=== PATIENT | male | born 1970 | race Caucasian/White ===

== ENCOUNTER 2018-10-09 10:34 | Inpatient (IN) ==
[2018-10-09] MEDS ORDERED: ASPIRIN PO ONE (11:08)
[2018-10-09 11:26] LABS: BASO# 0.02 X1000 (0.0-0.2); BASO% 0.2 % (0.0-0.8); EOS# 0.22 X1000 (0.0-0.7); EOS% 2.6 % (0.0-10.0); HEMATOCRIT 40.2 % (42.0-52.0); HEMOGLOBIN 14.6 g/dL (14.0-18.0); IMM GRAN# 0.03 X1000 (0.0-0.04); IMM GRAN% 0.4 % (0.0-0.5); LYMPH% 27.2 % (20.5-51.1); MCH 30.9 PG (27-31); MCHC 36.3 g/dL (33-37); MCV 85.2 FL (81-99); MONO# 0.59 X1000 (0.11-0.59); MPV 10.9 FL (7.4-10.4); NEUT# 5.31 X1000 (1.4-6.5); NEUT% 62.6 % (42.2-75.2); PLT 247 X1000 (130-400); RBC 4.72 XMIL (4.7-6.1); RDW 12.8 % (11.5-14.5); WBC 8.47 X1000 (4.8-10.8)
[2018-10-09 11:43] LABS: INR 0.91
[2018-10-09 11:44] LABS: PTT 29.4 Seconds (22.3-41.8)
[2018-10-09 11:46] LABS: D-DIMER 0.36 ug/mLFEU (0.0-0.52)
[2018-10-09 11:49] LABS: AGAP 10; ALB/GLOB RATIO 1.9; ALBUMIN 4.1 g/dL (3.5-5.0); ALKALINE PHOSPHATASE 110 U/L (32-122); BUN 15 mg/dL (8-22); CALCIUM 8.8 mg/dL (8.8-10.2); CHLORIDE 103 mmol/L (98-107); CK PROFILE 187 U/L (24-204); COSMO 281; ESTIMATED GFR > 60; GLUCOSE 143 mg/dL (70-104); GOT 17 U/L (10-34); GPT 21 U/L (10-44); POTASSIUM 3.5 mmol/L (3.5-5.1); SODIUM 139 mmol/L (136-145); TCO2 26 mmol/L (25-35); TOTAL BILIRUBIN 0.27 mg/dL (0.20-1.00); TOTAL PROTEIN 6.3 g/dL (6.3-8.3)
--- NOTE | 2018-10-09 11:58 | Diag Imaging Result Doc PS360 ---
CHEST-2 VIEWS - 10/09/2018 INDICATION: chest pain. COMPARISON: CT from 01/26/2017 FINDINGS: Stable surgical changes to the lateral right seventh rib with some resulting scarring of the lateral costophrenic angle. Stable right-sided fusion plate at T8-T9. The lungs are clear. Heart size is normal. No pneumothorax or pleural effusion. IMPRESSION: No change from prior. Electronically signed by Mookie Goddard 10/09/2018 11:55 AM
--- NOTE | 2018-10-09 13:44 | EKG Report ---
Test Performed on : 10/09/2018 11:00:44 AM Test Reason : CHEST PAIN/ SOB Blood Pressure : / mmHG Vent. Rate : 079 BPM Atrial Rate : 079 BPM P-R Int : 154 ms QRS Dur : 088 ms QT Int : 392 ms P-R-T Axes : 049 050 037 degrees QTc Int : 449 ms Normal sinus rhythm. Normal ECG When compared with ECG of 27-JAN-2017 00:59, No significant change was found Unconfirmed Result
[2018-10-09 15:04] LABS: HEMOGLOBIN A1C 5.1 % (4.8-6.0)
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
[2018-10-09] MEDS ORDERED: REQUIP PO SCH (21:00)
[2018-10-09] MEDS ORDERED: PROZAC PO SCH (21:00)
--- NOTE | 2018-10-09 22:27 | CONSULTATION ---
DATE OF CONSULTATION: 10/09/2018 IMPRESSION: 1. Noncardiac chest pain. 2. Hypertension in the past. 3. Chronic cigarette use. RECOMMENDATIONS: 1. Follow up cardiac enzymes. 2. Consider initiation of angiotensin receptor blocking agent for elevated blood pressure if this is consistent. 3. Check fasting lipid profile. 4. Exercise treadmill study reasonable to pursue as a screening test. This certainly could be pursued as an outpatient. HISTORY: This is a 48-year-old white male with past history of hypertension in the past and chronic cigarette use was admitted for further evaluation of chest pain. He reports a 1-week history of midsternal, sharp, stabbing chest pain that has been constant and has been without interruption. Discomfort is rated as a 5/10 in severity but increases with deep breath or cough. Discomfort is not positional nor is it aggravated by lifting. He contacted his primary physician, who referred him to the urgent care at his place of work, with which is [employer]. They advised him that he was not able to be seen in their urgent care clinic as he had not been working for [employer] long enough. They suggested he go to the emergency room. He has not had any cough. Not aware of any previous cardiac problems. He had high blood pressure in the past and was on treatment for this at one point. PAST MEDICAL HISTORY: 1. Hypertension. the past. 2. Chronic cigarette use. 3. History of nasal reconstruction surgery and previous back surgery. 4. He has no known drug allergies. MEDICATIONS PRIOR TO ADMISSION: Include meloxicam, ropinirole, and fluoxetine. SOCIAL HISTORY: He smokes about a half pack of cigarettes per day. He drinks infrequent alcoholic beverage. He is . He previously lived in the [place], [place] area but moved up to the [facility]. He has a family member who lives in [place]. He works at [employer]. FAMILY HISTORY: Negative for premature coronary disease. REVIEW OF SYSTEMS: Pulmonary: Negative beyond history of present illness. Gastrointestinal: Negative beyond history of present illness. Constitutional: Negative beyond history of present illness. Remainder of review of systems negative beyond history of present illness with 14 total systems reviewed. PHYSICAL EXAMINATION: General: This is an overweight white male in no distress on room air. Vital signs: Blood pressure 148/90, heart rate 60, oxygen saturation 98%. HEENT: Extraocular movements intact. Mucous membranes moist. Neck: Supple without jugular venous distention. There are no carotid bruits. Chest: Clear to auscultation. Cardiac: Reveals a regular rate and rhythm without appreciable murmur, rub, or gallop. Abdomen: Soft, bowel sounds normal. Extremities: Without edema. Neurologic: Reveals him to be alert and fully oriented. Speech is fluent. Moves all 4 extremities equally well. Skin: Warm and dry. Psychiatric: Reveals mood to be appropriate. EKG: A 12-lead EKG demonstrates normal sinus rhythm and it is within normal limits. LABORATORY DATA: Includes a white blood cell count 8.47, hematocrit 40.2, hemoglobin 14.6, platelet count 247,000. D-dimer 0.36. Sodium 139, potassium 3.5, chloride 103, carbon dioxide 26, BUN 15, creatinine 1.0. Initial troponin less than 0.01. Followup troponin's less 0.01 and less than 0.01. CPK 170, pro B natriuretic peptide level 139. IMAGING: Chest x-ray reviewed and demonstrates no acute infiltrates. Cardiac silhouette is normal in size. cc: Ishan Richards MD
[2018-10-10] MEDS ORDERED: HUMALOG SUBQ SCH (07:00)
[2018-10-10] MEDS ORDERED: PRILOSEC PO SCH (07:00)
[2018-10-10 07:04] LABS: HEMATOCRIT 42.8 % (42.0-52.0); MCH 30.2 PG (27-31); MCV 86.3 FL (81-99); MPV 10.7 FL (7.4-10.4); RBC 4.96 XMIL (4.7-6.1); WBC 8.62 X1000 (4.8-10.8)
--- NOTE | 2018-10-10 07:17 | EKG Report ---
Test Performed on : 10/09/2018 8:34:44 PM Test Reason : CP Blood Pressure : / mmHG Vent. Rate : 063 BPM Atrial Rate : 063 BPM P-R Int : 162 ms QRS Dur : 084 ms QT Int : 414 ms P-R-T Axes : 044 047 038 degrees QTc Int : 423 ms Normal sinus rhythm. Normal ECG When compared with ECG of 09-OCT-2018 11:00, (Unconfirmed) No significant change was found Confirmed by Kane JONES, Joe Amaya ([id number]) on 10/12/2018 4:38:08 PM
[2018-10-10 07:25] LABS: AGAP 11; BUN 10 mg/dL (8-22); CALCIUM 8.6 mg/dL (8.8-10.2); CHLORIDE 103 mmol/L (98-107); COSMO 278; ESTIMATED GFR > 60; GLUCOSE 91 mg/dL (70-104); POTASSIUM 3.7 mmol/L (3.5-5.1); SODIUM 140 mmol/L (136-145); TCO2 26 mmol/L (25-35)
[2018-10-10 07:37] LABS: CHOLESTEROL 191 mg/dL (0-200); HDL 34 mg/dL (35-55); TRIGLYCERIDES 432 mg/dL (39-160)
[2018-10-10] MEDS ORDERED: ASPIRIN EC PO SCH (09:00)
[2018-10-10] MEDS ORDERED: PRINIVIL PO SCH (09:00)
--- NOTE | 2018-10-10 13:49 | GRADED EXERCISE REPORT ---
DATE: 10/10/2018 INDICATION: Screening EKG stress. FINDINGS: 1. Baseline EKG shows sinus rhythm. 2. The patient exercised for a total of 8 minutes achieving peak heart rate of 150, which was 87% of age predicted heart rate. He achieved 10.1 METS and 84% of age and sex predicted exercise capacity. 3. Appropriate blood pressure response to exercise. 4. Test was terminated due to fatigue. 5. The patient had chart chest pain that was 5/10 prior to the test that worsened to 9/10 during the course of the study. 6. No ischemic related EKG changes or significant arrhythmias. 7. Cummings treadmill score of 4 indicating a moderate risk study. cc: Bassem Pineda MD
[2018-10-10] MEDS: LOVENOX SUBQ SCH ×2 (14:52→14:53)
[2018-10-10 17:02] VITALS: BP 136/90
[2018-10-10] MEDS ORDERED: LIPITOR PO SCH (21:00)
--- NOTE | 2018-10-11 14:14 | DISCHARGE SUMMARY ---
ADMISSION DATE: 10/09/2018 DISCHARGE DATE: 10/10/2018 PRIMARY CARE PHYSICIAN: Dr. Rodríguez. FINAL DISCHARGE DIAGNOSIS: 1. Chest pain. 2. Obesity. 3. Tobacco dependence. 4. Hyperlipidemia. 5. Hypertension. IMAGIN. Portable chest x-ray which revealed no change lungs are clear. 2. Exercise stress test which revealed no ischemia related to EKG changes or significant arrhythmias. CONSULTATIONS: Cardiology consultation with Dr. Richards. HOSPITAL COURSE: Mr. Edouard is a 48-year-old male with a history of tobacco dependence, hypertension and obesity who presented to the ER with chest pain. The patient was admitted to the hospitalist service and serial troponins and EKGs were obtained. The patient's troponins were noted to be negative and exercise stress test was ordered by the bulk pallet builder that revealed no evidence of ischemia. Patient was started on Lipitor due to hyperlipidemia that was found on blood work also the patient was noted to be hypertensive and was started on lisinopril. The patient was advised to quit smoking and lose weight. The patient had no further chest pain and was ultimately cleared for discharge home on 10/10/2018. DISCHARGE MEDICATIONS: 1. Lisinopril 5 mg p.o. daily. 2. Lipitor 40 mg p.o. at bedtime. 3. Requip 1 mg p.o. daily. 4. Prozac 40 mg p.o. daily. 5. Aspirin 81 mg p.o. daily. DISCHARGE DIET: Low-sodium low-cholesterol diet. ACTIVITY: As tolerated. FOLLOWUP INSTRUCTIONS: The patient has been advised to follow up with Dr. Richards within 1 month. The patient will need to follow up with Dr. Rodríguez in 1 to 2 weeks. cc: Gena Broussard MD
== END 2018-10-10 18:37 | disposition home or self-care (01) | DRG 313 ==
LOC: ED 10:34 → 3N 10:34 → OBSVTOIN 14:09
PROVIDERS: ATTEND Internal Medicine
CPT/HCPCS: 71020; 71046; 80048; 80053; 80061; 82550; 83036; 83880; 84484; 85025; 85027; 85379; 85610; 85730; 93005; 93010; 93017; 94761; 99285; A9270